=== PATIENT | female | born 2000 | race African-American/Black ===

== ENCOUNTER 2020-05-31 02:08 | Inpatient (IN) | payer OTHER ==
[2020-05-31] MEDS ORDERED: DEXAMETHASONE SOD PHOSPHATE 4 MG/1 ML VIAL IVPUSH ONE (02:33)
[2020-05-31] MEDS ORDERED: ACETAMINOPHEN 325 MG TABLET (FP) PO ONE (02:33)
[2020-05-31] MEDS ORDERED: ACETAMINOPHEN 325 MG TABLET (FP) ONE (02:52)
[2020-05-31] MEDS ORDERED: DEXAMETHASONE SOD PHOSPHATE 10 MG/1 ML VIAL ONE (02:52)
[2020-05-31 03:13] LABS: BASO % 0.9 % (0-2.0); EOS % 0.1 % (0-4.5); HEMATOCRIT 34.3 % (32.4-45.2); HEMOGLOBIN 11.4 GM/dL (10.7-15.3); LYMPH % 22.6 % (8-40); MCH 25.9 pg (25.7-33.7); MCHC 33.3 g/dl (32.0-36.0); MEAN CELL VOLUME 77.8 fl (80-96); MEAN PLT VOLUME 7.7 fl (7.5-11.1); MONO % 8.4 % (3.8-10.2); PLATELET COUNT 234 K/MM3 (134-434); RBC 4.41 M/mm3 (3.60-5.2); RDW 18.6 % (11.6-15.6); WHITE BLOOD COUNT 5.5 K/mm3 (4.0-10.0)
[2020-05-31 03:20] LABS: INR 1.09 (0.83-1.09); PROTHROMBIN TIME (PATIENT) 13.1 SEC (9.7-13.0)
[2020-05-31 03:23] LABS: ACTIVATED PTT 30.8 SECONDS (25.2-36.5); CHLORIDE 109 mmol/L (98-107); POTASSIUM 4.2 mmol/L (3.5-5.1); SODIUM 141 mmol/L (136-145)
[2020-05-31 03:25] LABS: CALCIUM 8.1 mg/dL (8.5-10.1)
[2020-05-31 03:26] LABS: ALBUMIN 3.4 g/dl (3.4-5.0); ANION GAP 6 MMOL/L (8-16); BLOOD UREA NITROGEN 8.8 mg/dL (7-18); CO2 26 mmol/L (21-32); GLUCOSE,RANDOM 111 mg/dL (74-106)
[2020-05-31 03:28] LABS: BILIRUBIN,DIRECT 0.3 mg/dL (0.0-0.2); CREATININE 0.8 mg/dL (0.55-1.3); SGPT/ALT 63 U/L (13-61)
[2020-05-31 03:29] LABS: SGOT/AST 57 U/L (15-37)
[2020-05-31 03:30] LABS: BILIRUBIN,TOTAL 0.7 mg/dL (0.2-1); LDH 394 U/L (84-246); TOT PROT 7.2 g/dl (6.4-8.2)
[2020-05-31 03:31] LABS: ALK PHOS 43 U/L (45-117)
[2020-05-31] MEDS ORDERED: AZITHROMYCIN 500 MG TABLET PO ONE (06:47)
[2020-05-31] MEDS ORDERED: CEFTRIAXONE 1,000 MG in DEXTROSE 5%-WATER - 50 ML IVPB ONE (06:47)
[2020-05-31] MEDS ORDERED: OSELTAMIVIR PHOSPHATE 75 MG CAPSULE PO ONE (07:03)
[2020-05-31] MEDS ORDERED: AZITHROMYCIN 250 MG TABLET ONE (07:29)
[2020-05-31] MEDS ORDERED: CEFTRIAXONE 1 GM/50 ML BAG ONE (07:29)
[2020-05-31] MEDS: INSULIN SLIDING SCALE (NOVOLOG) 1 VIAL SQ SCH ×3 (11:37→22:39)
[2020-05-31] MEDS: guaiFENesin/D-M SUGAR-FREE/ACLHOL-FREE 5 ML UNIT DOSE PO PRN ×2 (12:30→22:58)
[2020-05-31 13:35] LABS: VENOUS BASE EXCESS -5.2 mmol/L (-2-2); VENOUS O2 SATURATION 82.2 % (70-80); VENOUS PCO2 38.8 mmHg (38-52); VENOUS PH 7.334 (7.310-7.410)
[2020-05-31] MEDS: OSELTAMIVIR PHOSPHATE 75 MG CAPSULE PO SCH (22:51)
[2020-05-31] MEDS: ACETAMINOPHEN 325 MG TABLET (FP) PO PRN (22:52)
[2020-05-31] MEDS: ENOXAPARIN NA (PORCINE) 40 MG/0.4 ML DISP.SYRIN SQ SCH (22:52)
[2020-05-31] MEDS ORDERED: PT OWN MED DRAWER 7, Y5N ONE (23:06)
[2020-06-01 02:21] VITALS: BMI 56.9
[2020-06-01] MEDS: LEVOTHYROXINE NA 25 MCG TABLET (FP) PO SCH (06:50)
[2020-06-01] MEDS: INSULIN SLIDING SCALE (NOVOLOG) 1 VIAL SQ SCH ×4 (06:55→22:33)
[2020-06-01 07:18] LABS: BASO % 0.2 % (0-2.0); HEMATOCRIT 32.5 % (32.4-45.2); HEMOGLOBIN 10.9 GM/dL (10.7-15.3); LYMPH % 27.3 % (8-40); MCH 26.2 pg (25.7-33.7); MCHC 33.7 g/dl (32.0-36.0); MEAN CELL VOLUME 77.7 fl (80-96); MEAN PLT VOLUME 7.5 fl (7.5-11.1); MONO % 7.4 % (3.8-10.2); NEUT % 65.1 % (42.8-82.8); PLATELET COUNT 248 K/MM3 (134-434); RBC 4.18 M/mm3 (3.60-5.2); RDW 19.1 % (11.6-15.6); WHITE BLOOD COUNT 7.2 K/mm3 (4.0-10.0)
[2020-06-01 07:39] LABS: POTASSIUM 3.9 mmol/L (3.5-5.1)
[2020-06-01 08:10] LABS: CALCIUM 8.6 mg/dL (8.5-10.1)
[2020-06-01 08:11] LABS: ALBUMIN 3.2 g/dl (3.4-5.0); BLOOD UREA NITROGEN 10.7 mg/dL (7-18); MAGNESIUM 2.3 mg/dL (1.8-2.4)
[2020-06-01 08:14] LABS: CREATININE 0.8 mg/dL (0.55-1.3); PHOSPHOROUS 3.8 mg/dL (2.5-4.9)
[2020-06-01 08:15] LABS: BILIRUBIN,TOTAL 0.8 mg/dL (0.2-1); TOT PROT 6.8 g/dl (6.4-8.2)
[2020-06-01] MEDS ORDERED: INSULIN (NOVOLOG) ASPART 100 UNITS/ML 10ML VIAL ONE (09:47)
[2020-06-01] MEDS: DEXAMETHASONE 4 MG TABLET (FP) PO SCH ×2 (09:59→10:03)
[2020-06-01] MEDS: OSELTAMIVIR PHOSPHATE 75 MG CAPSULE PO SCH ×2 (09:59→22:33)
[2020-06-01] MEDS: ENOXAPARIN NA (PORCINE) 40 MG/0.4 ML DISP.SYRIN SQ SCH ×2 (09:59→22:32)
[2020-06-01] MEDS ORDERED: FLU VACCINE (FLULAVAL) PF 60 MCG/0.5 ML SYRINGE 2020-2021 IM ONE (10:00)
[2020-06-01] MEDS: DEXAMETHASONE SOD PHOSPHATE 4 MG/1 ML VIAL IVPUSH SCH (10:20)
[2020-06-01] MEDS: ACETAMINOPHEN 325 MG TABLET (FP) PO PRN (10:24)
[2020-06-01] MEDS ORDERED: REMDESIVIR 200 MG in SODIUM CHLORIDE 210 ML IVPB ONE (11:00)
[2020-06-01] MEDS: guaiFENesin/D-M SUGAR-FREE/ACLHOL-FREE 5 ML UNIT DOSE PO PRN ×2 (12:29→22:33)
[2020-06-01] MEDS: FAMOTIDINE 20 MG TABLET PO SCH ×2 (13:23→22:33)
[2020-06-01 14:32] LABS: RETICULOCYTES 2.53 % (0.5-1.5)
[2020-06-01] MEDS: ZINC SULFATE 220 MG CAPSULE (FP) PO SCH (18:45)
[2020-06-01] MEDS: CHOLECALCIFEROL (VIT D3) 1,000 UNIT (25 MCG) TABLET PO SCH (18:45)
[2020-06-01] MEDS ORDERED: PT OWN MED DRAWER 7, Y5N ONE (22:18)
[2020-06-01] MEDS: ASCORBIC ACID 500 MG TABLET (FP) PO SCH (22:33)
[2020-06-02] MEDS: ACETAMINOPHEN 325 MG TABLET (FP) PO PRN (02:45)
[2020-06-02] MEDS: LEVOTHYROXINE NA 25 MCG TABLET (FP) PO SCH (06:03)
[2020-06-02] MEDS: INSULIN SLIDING SCALE (NOVOLOG) 1 VIAL SQ SCH ×4 (06:03→21:55)
[2020-06-02 07:38] LABS: HEMATOCRIT 32.5 % (32.4-45.2); HEMOGLOBIN 10.9 GM/dL (10.7-15.3); MCHC 33.6 g/dl (32.0-36.0); MEAN CELL VOLUME 77.3 fl (80-96); MEAN PLT VOLUME 7.4 fl (7.5-11.1); PLATELET COUNT 291 K/MM3 (134-434); RDW 19.1 % (11.6-15.6)
[2020-06-02 08:01] LABS: POTASSIUM 3.7 mmol/L (3.5-5.1)
[2020-06-02 08:20] LABS: CALCIUM 8.7 mg/dL (8.5-10.1)
[2020-06-02 08:21] LABS: ALBUMIN 3.2 g/dl (3.4-5.0); BLOOD UREA NITROGEN 10.9 mg/dL (7-18); MAGNESIUM 2.6 mg/dL (1.8-2.4)
[2020-06-02 08:24] LABS: CREATININE 0.7 mg/dL (0.55-1.3)
[2020-06-02 08:25] LABS: BILIRUBIN,TOTAL 0.7 mg/dL (0.2-1); PHOSPHOROUS 3.5 mg/dL (2.5-4.9)
[2020-06-02] MEDS: ENOXAPARIN NA (PORCINE) 40 MG/0.4 ML DISP.SYRIN SQ SCH ×2 (10:11→21:44)
[2020-06-02] MEDS: CHOLECALCIFEROL (VIT D3) 1,000 UNIT (25 MCG) TABLET PO SCH (10:11)
[2020-06-02] MEDS: guaiFENesin/D-M SUGAR-FREE/ACLHOL-FREE 5 ML UNIT DOSE PO PRN (10:12)
[2020-06-02] MEDS: ZINC SULFATE 220 MG CAPSULE (FP) PO SCH (10:12)
[2020-06-02] MEDS: FAMOTIDINE 20 MG TABLET PO SCH ×2 (10:12→21:45)
[2020-06-02] MEDS: DEXAMETHASONE SOD PHOSPHATE 4 MG/1 ML VIAL IVPUSH SCH (10:13)
[2020-06-02] MEDS: OSELTAMIVIR PHOSPHATE 75 MG CAPSULE PO SCH ×2 (10:14→21:45)
[2020-06-02] MEDS: ASCORBIC ACID 500 MG TABLET (FP) PO SCH ×2 (10:14→21:44)
[2020-06-02] MEDS: REMDESIVIR 100 MG in SODIUM CHLORIDE 230 ML IVPB SCH (11:36)
[2020-06-02] MEDS ORDERED: PT OWN MED DRAWER 7, Y5N ONE (21:31)
[2020-06-02] MEDS ORDERED: INSULIN (NOVOLOG) ASPART 100 UNITS/ML 10ML VIAL ONE (21:35)
[2020-06-03] MEDS: LEVOTHYROXINE NA 25 MCG TABLET (FP) PO SCH (06:51)
[2020-06-03] MEDS: INSULIN SLIDING SCALE (NOVOLOG) 1 VIAL SQ SCH ×4 (06:57→21:00)
[2020-06-03 07:51] LABS: HEMATOCRIT 31.7 % (32.4-45.2); HEMOGLOBIN 10.7 GM/dL (10.7-15.3); MCH 26.2 pg (25.7-33.7); MCHC 33.7 g/dl (32.0-36.0); MEAN CELL VOLUME 77.7 fl (80-96); MEAN PLT VOLUME 7.6 fl (7.5-11.1); PLATELET COUNT 331 K/MM3 (134-434); RBC 4.08 M/mm3 (3.60-5.2); RDW 18.7 % (11.6-15.6); WHITE BLOOD COUNT 5.2 K/mm3 (4.0-10.0)
[2020-06-03 08:29] LABS: POTASSIUM 4.2 mmol/L (3.5-5.1)
[2020-06-03 08:37] LABS: ALBUMIN 3.2 g/dl (3.4-5.0); BLOOD UREA NITROGEN 10.2 mg/dL (7-18); CALCIUM 8.8 mg/dL (8.5-10.1)
[2020-06-03 08:38] LABS: BILIRUBIN,TOTAL 0.8 mg/dL (0.2-1)
[2020-06-03 08:40] LABS: CREATININE 0.6 mg/dL (0.55-1.3)
[2020-06-03] MEDS: DEXAMETHASONE SOD PHOSPHATE 4 MG/1 ML VIAL IVPUSH SCH (09:59)
[2020-06-03] MEDS: ENOXAPARIN NA (PORCINE) 40 MG/0.4 ML DISP.SYRIN SQ SCH ×2 (09:59→21:00)
[2020-06-03] MEDS: FAMOTIDINE 20 MG TABLET PO SCH ×2 (10:00→21:00)
[2020-06-03] MEDS: ZINC SULFATE 220 MG CAPSULE (FP) PO SCH (10:00)
[2020-06-03] MEDS: OSELTAMIVIR PHOSPHATE 75 MG CAPSULE PO SCH ×2 (10:00→21:48)
[2020-06-03] MEDS: CHOLECALCIFEROL (VIT D3) 1,000 UNIT (25 MCG) TABLET PO SCH (10:00)
[2020-06-03] MEDS: ASCORBIC ACID 500 MG TABLET (FP) PO SCH ×2 (10:01→21:00)
[2020-06-03] MEDS: REMDESIVIR 100 MG in SODIUM CHLORIDE 230 ML IVPB SCH (11:37)
[2020-06-04] MEDS: LEVOTHYROXINE NA 25 MCG TABLET (FP) PO SCH (06:06)
[2020-06-04] MEDS: INSULIN SLIDING SCALE (NOVOLOG) 1 VIAL SQ SCH (06:14)
[2020-06-04 08:03] LABS: POTASSIUM 3.9 mmol/L (3.5-5.1)
[2020-06-04 08:05] LABS: BASO % 0.2 % (0-2.0); HEMATOCRIT 32.9 % (32.4-45.2); HEMOGLOBIN 11.1 GM/dL (10.7-15.3); LYMPH % 38.1 % (8-40); MCH 26.3 pg (25.7-33.7); MCHC 33.6 g/dl (32.0-36.0); MEAN CELL VOLUME 78.2 fl (80-96); MEAN PLT VOLUME 7.5 fl (7.5-11.1); MONO % 15.6 % (3.8-10.2); NEUT % 46.1 % (42.8-82.8); PLATELET COUNT 378 K/MM3 (134-434); RBC 4.21 M/mm3 (3.60-5.2); RDW 18.5 % (11.6-15.6); WHITE BLOOD COUNT 6.5 K/mm3 (4.0-10.0)
[2020-06-04 08:06] LABS: CALCIUM 8.5 mg/dL (8.5-10.1)
[2020-06-04 08:07] LABS: ALBUMIN 3.1 g/dl (3.4-5.0); BLOOD UREA NITROGEN 11.5 mg/dL (7-18)
[2020-06-04 08:10] LABS: CREATININE 0.7 mg/dL (0.55-1.3)
[2020-06-04 08:11] LABS: BILIRUBIN,TOTAL 0.9 mg/dL (0.2-1)
[2020-06-04 08:12] LABS: TOT PROT 6.8 g/dl (6.4-8.2)
[2020-06-04] MEDS: ENOXAPARIN NA (PORCINE) 40 MG/0.4 ML DISP.SYRIN SQ SCH (09:07)
[2020-06-04] MEDS: FAMOTIDINE 20 MG TABLET PO SCH (09:08)
[2020-06-04] MEDS: OSELTAMIVIR PHOSPHATE 75 MG CAPSULE PO SCH (09:08)
[2020-06-04] MEDS: ASCORBIC ACID 500 MG TABLET (FP) PO SCH (09:08)
[2020-06-04] MEDS: DEXAMETHASONE SOD PHOSPHATE 4 MG/1 ML VIAL IVPUSH SCH (09:08)
[2020-06-04] MEDS: ZINC SULFATE 220 MG CAPSULE (FP) PO SCH (09:08)
[2020-06-04] MEDS: CHOLECALCIFEROL (VIT D3) 1,000 UNIT (25 MCG) TABLET PO SCH (09:08)
[2020-06-04 09:16] VITALS: BP 130/77; TEMP 98
[2020-06-04 10:25] VITALS: PULSE 121
[2020-06-04 10:38] LABS: ANISOCYTOSIS 0; HELMET CELLS 0; HOWELL-JOLLY BODIES 0; MACROCYTOSIS 0; OVALOCYTE 0; PLATELET ESTIMATE NORMAL; ROULEAU 0; SICKELED CELLS 0; TARGET CELLS 0; TEAR DROP CELLS 0; TOXIC GRANULATION 0
[2020-06-04] MEDS: REMDESIVIR 100 MG in SODIUM CHLORIDE 230 ML IVPB SCH (11:04)
== END 2020-06-04 15:00 | disposition home or self-care (01) | DRG 137 ==
LOC: JER 02:08 → JERBED 07:36 → J7W 22:09
PROVIDERS: ADMIT Internal Medicine; ATTEND Internal Medicine
PROC: XW033E5 Introduction of Remdesivir Anti-infective into Peripheral Vein, Percutaneous Approach, New Technology Group 5 (ICD-10-PCS; principal; 2020-06-01)
PROC: XW13325 Transfusion of Convalescent Plasma (Nonautologous) into Peripheral Vein, Percutaneous Approach, New Technology Group 5 (ICD-10-PCS; 2020-06-01)
DX: U07.1 COVID-19 (principal); E66.01 Morbid (severe) obesity due to excess calories; Z68.43 Body mass index [BMI] 50.0-59.9, adult; J96.01 Acute respiratory failure with hypoxia; J12.82 Pneumonia due to coronavirus disease 2019; J10.08 Influenza due to other identified influenza virus with other specified pneumonia; E03.9 Hypothyroidism, unspecified; R74.01 Elevation of levels of liver transaminase levels
CPT/HCPCS: 36415; 71045-TC-FY; 71275-TC; 80053; 82248; 82550; 82553; 82728; 82803; 82962; 83540; 83550; 83605; 83615; 83735; 84100; 84466; 84484; 84703; 85025; 85027; 85045; 85379; 85610; 85730; 86140; 86769; 86850; 86900; 86901; 87804; 93005; 93010; 94010; 94761; 99285-25; C9399; C9803; U0003